=== PATIENT | female | born 1960 | race Hispanic/Latino ===

== ENCOUNTER 2018-01-29 00:34 | Emergency (ER) | payer OTHER ==
[~2018-01-29 00:34] MED LIST: FLUT16H NASAL; SULF1TAB42 PO; TAMS-1 PO; [UNRECOGNIZED DRUG - CODE] PO
[2018-01-29 01:01] LABS: APPEARANCE,URINE Cloudy (CLEAR); BILIRUBIN,URINE Negative (NEGATIVE); COLOR,URINE Yellow (YELLOW); GLUCOSE, URINE (UA) Negative (NEGATIVE); KETONES,URINE Negative (NEGATIVE); LEUKOCYTE ESTERASE ,URINE Moderate (NEGATIVE); NITRATE,URINE Negative (NEGATIVE); OCCULT BLOOD,URINE Negative (NEGATIVE); PROTEIN,URINE Negative (NEGATIVE); UROBILINOGEN,URINE 0.2 mg/dL (0.2-1.0)
[2018-01-29 01:16] LABS: BACTERIA,URINE None Seen /HPF (None Seen); RBC,URINE 0-1 /HPF (0-1)
[2018-01-29 01:17] LABS: SQUAMOUS EPITHELIAL CELL,UR Few /HPF (0-2); URIC ACID CRYSTALS,URINE Moderate /LPF (None Seen)
[2018-01-29 01:21] LABS: BASOPHILS % (AUTO) 2.4 % (0.0-5.0); EOSINOPHILS % (AUTO) 13.3 % (0.0-8.0); HEMATOCRIT 39.5 % (36-48); LYMPHOCYTES % (AUTO) 19.5 % (21.0-51.0); MEAN CORPUSCULAR HEMOGLOBIN 28.3 pg (27.0-33.0); MEAN CORPUSCULAR HGB CONC 32.5 g/dL (32.0-36.0); MEAN CORPUSCULAR VOLUME 87.1 fL (79-99); MONOCYTES % (AUTO) 7.3 % (3.0-13.0); NEUTROPHILS % (AUTO) 57.5 % (40.0-77.0); PLATELET COUNT (AUTO) 227 K/uL (130-400); RED BLOOD CELL COUNT(AUTO) 4.53 MIL/uL (4.00-5.50); WHITE BLOOD COUNT (AUTO) 14.1 K/uL (4.8-10.8)
[2018-01-29] MEDS ORDERED: SODIUM CHLORIDE 0.9% 500ML 500 ML IV ONE (01:39)
[2018-01-29] MEDS ORDERED: MORPHINE SULFATE 4 MG/1ML SYG ONE (01:39)
[2018-01-29] MEDS ORDERED: ONDANSETRON HCL 4 MG/2 ML VIAL ONE (01:39)
[2018-01-29 01:41] LABS: CREATININE 0.8 mg/dL (0.5-1.5); POTASSIUM 4.3 mmol/L (3.5-5.1)
[2018-01-29 01:53] LABS: ALBUMIN 3.3 g/dL (3.5-5.0); BILIRUBIN,TOTAL 0.4 mg/dL (0.2-1.0); TOTAL PROTEIN, SERUM 7.6 g/dL (6.0-8.3)
[2018-01-29 01:55] LABS: B-TYPE NATRIURETIC PEPTIDE < 5 pg/mL (0-100)
[2018-01-29] MEDS ORDERED: KETOROLAC TROMETHAMINE 30MG/ML ONE (03:22)
== END 2018-01-29 04:06 | disposition home or self-care (01) ==
LOC: EDH 00:34
DX: N23 Unspecified renal colic (principal); E78.5 Hyperlipidemia, unspecified; Z88.1 Allergy status to other antibiotic agents
CPT/HCPCS: 36415; 71045; 74176; 80053; 81001; 82550; 83880; 84484; 84702; 85025; 93005; 94761; 96374; 96375; 99285; J1885; J2270; J2405; J7040

== ENCOUNTER 2018-02-16 01:51 | Inpatient (IN) | payer OTHER ==
[~2018-02-16] VITALS: Ht 160 cm; Wt 102.1 kg
[2018-02-16 02:27] LABS: BILIRUBIN,URINE Negative (NEGATIVE); COLOR,URINE Yellow (YELLOW); GLUCOSE, URINE (UA) Negative (NEGATIVE); KETONES,URINE Negative (NEGATIVE); LEUKOCYTE ESTERASE ,URINE Small (NEGATIVE); NITRATE,URINE Negative (NEGATIVE); OCCULT BLOOD,URINE Negative (NEGATIVE); PROTEIN,URINE Negative (NEGATIVE); UROBILINOGEN,URINE 0.2 mg/dL (0.2-1.0)
[2018-02-16 02:31] LABS: APPEARANCE,URINE SLIGHTLY CLOUDY (CLEAR)
[2018-02-16 02:36] LABS: BACTERIA,URINE None Seen /HPF (None Seen); RBC,URINE None Seen /HPF (0-1); SQUAMOUS EPITHELIAL CELL,UR Rare /HPF (0-2); URIC ACID CRYSTALS,URINE Few /LPF (None Seen)
[2018-02-16 03:10] LABS: CREATININE 0.8 mg/dL (0.5-1.5); POTASSIUM 3.7 mmol/L (3.5-5.1)
[2018-02-16 03:14] LABS: ALBUMIN 3.1 g/dL (3.5-5.0); BILIRUBIN,TOTAL 0.4 mg/dL (0.2-1.0); CRP QUANTITATIVE 47.5 mg/L (0.00-9.0); TOTAL PROTEIN, SERUM 7.3 g/dL (6.0-8.3)
[2018-02-16 03:17] LABS: EOSINOPHILS % (AUTO) 19.2 % (0.0-8.0); HEMATOCRIT 36.7 % (36-48); LYMPHOCYTES % (AUTO) 22.1 % (21.0-51.0); MEAN CORPUSCULAR HEMOGLOBIN 29.1 pg (27.0-33.0); MEAN CORPUSCULAR HGB CONC 33.7 g/dL (32.0-36.0); MEAN CORPUSCULAR VOLUME 86.3 fL (79-99); MONOCYTES % (AUTO) 8.1 % (3.0-13.0); NEUTROPHILS % (AUTO) 49.6 % (40.0-77.0); PLATELET COUNT (AUTO) 305 K/uL (130-400); RED BLOOD CELL COUNT(AUTO) 4.25 MIL/uL (4.00-5.50); RED CELL DISTRIBUTION WIDTH 15.4 % (11.0-15.5); WHITE BLOOD COUNT (AUTO) 17.5 K/uL (4.8-10.8)
[2018-02-16] MEDS ORDERED: HYOSCYAMINE SULFATE 0.125 MG TAB.SUBL SL ONE (04:09)
[2018-02-16] MEDS ORDERED: METHYLPREDNISOLONE SOD SUCC 125MG/2ML VIAL ONE (04:09)
[2018-02-16 04:14] LABS: ERYTHROCYTE SEDIMENTATION RATE 38 MM/HR (0-30)
[2018-02-16 04:50] VITALS: BP 111/67
[2018-02-16] MEDS: SODIUM CHLORIDE 0.9% 1000ML 1,000 ML IV SCH ×3 (05:36→22:07)
[2018-02-16] MEDS ORDERED: ONDANSETRON HCL 4 MG/2 ML VIAL IV PRN (05:45)
[2018-02-16] MEDS ORDERED: METHYLPREDNISOLONE SOD SUCC 125MG/2ML VIAL IV SCH (05:45)
[2018-02-16 08:00] VITALS: BP 118/67
[2018-02-16] MEDS ORDERED: PANTOPRAZOLE 40 MG/VIAL IVP SCH (09:00)
[2018-02-16] MEDS ORDERED: ENOXAPARIN SODIUM 40 MG/0.4 ML SYRINGE SQ SCH (09:00)
[2018-02-16] MEDS: LEVOFLOXACIN 500 MG/D5W 100 ML 100 ML IV SCH (09:42)
[2018-02-16 11:00] VITALS: BP 117/58
[2018-02-16] MEDS ORDERED: METHYLPREDNISOLONE SOD SUCC 40MG/ML 1ML IVP SCH (13:15)
[2018-02-16] MEDS: METRONIDAZOLE 500MG/100ML BAG 100 ML IV SCH ×2 (13:27→14:40)
[2018-02-16 16:00] VITALS: BP 99/54
[2018-02-16 19:15] VITALS: BP 100/57
[2018-02-16] MEDS ORDERED: LOPERAMIDE HCL 2 MG CAP PO PRN (21:45)
[2018-02-16] MEDS: METRONIDAZOLE 500 MG TABLET PO SCH (22:07)
[2018-02-17] VITALS (7 sets, daily range): BP systolic 90–135; BP diastolic 50–72
[2018-02-17 05:04] LABS: BASOPHILS % (AUTO) 0.6 % (0.0-5.0); EOSINOPHILS % (AUTO) 0.3 % (0.0-8.0); HEMATOCRIT 33.3 % (36-48); LYMPHOCYTES % (AUTO) 15.4 % (21.0-51.0); MEAN CORPUSCULAR HEMOGLOBIN 29.3 pg (27.0-33.0); MEAN CORPUSCULAR HGB CONC 34.1 g/dL (32.0-36.0); MONOCYTES % (AUTO) 11.3 % (3.0-13.0); NEUTROPHILS % (AUTO) 72.4 % (40.0-77.0); PLATELET COUNT (AUTO) 292 K/uL (130-400); RED BLOOD CELL COUNT(AUTO) 3.87 MIL/uL (4.00-5.50); RED CELL DISTRIBUTION WIDTH 15.6 % (11.0-15.5); WHITE BLOOD COUNT (AUTO) 14.9 K/uL (4.8-10.8)
[2018-02-17 05:30] LABS: ALBUMIN 2.8 g/dL (3.5-5.0); BILIRUBIN,TOTAL 0.3 mg/dL (0.2-1.0); CREATININE 0.7 mg/dL (0.5-1.5); POTASSIUM 3.7 mmol/L (3.5-5.1); TOTAL PROTEIN, SERUM 6.6 g/dL (6.0-8.3)
[2018-02-17] MEDS: METRONIDAZOLE 500 MG TABLET PO SCH ×3 (07:27→21:45)
[2018-02-17] MEDS: LEVOFLOXACIN 500 MG/D5W 100 ML 100 ML IV SCH (09:55)
[2018-02-17] MEDS: PANTOPRAZOLE SODIUM 40 MG TABLET.DR PO SCH (09:56)
[2018-02-17] MEDS: SODIUM CHLORIDE 0.9% 1000ML 1,000 ML IV SCH (10:06)
[2018-02-17] MEDS: METHYLPREDNISOLONE SOD SUCC 40MG/ML 1ML IVP SCH (20:21)
[2018-02-18 03:00] VITALS: BP 110/61
[2018-02-18] MEDS ORDERED: DICYCLOMINE HCL 20 MG TAB PO PRN (04:45)
[2018-02-18 05:25] LABS: MEAN CORPUSCULAR HEMOGLOBIN 28.9 pg (27.0-33.0); MEAN CORPUSCULAR HGB CONC 33.4 g/dL (32.0-36.0); MEAN CORPUSCULAR VOLUME 86.4 fL (79-99); PLATELET COUNT (AUTO) 302 K/uL (130-400); RED CELL DISTRIBUTION WIDTH 15.6 % (11.0-15.5); WHITE BLOOD COUNT (AUTO) 10.9 K/uL (4.8-10.8)
[2018-02-18 05:30] LABS: CREATININE 0.8 mg/dL (0.5-1.5); POTASSIUM 3.7 mmol/L (3.5-5.1)
[2018-02-18] MEDS: METRONIDAZOLE 500 MG TABLET PO SCH (06:51)
[2018-02-18] MEDS: PANTOPRAZOLE SODIUM 40 MG TABLET.DR PO SCH (06:51)
[2018-02-18 07:59] VITALS: BP 114/64
[2018-02-18] MEDS: LEVOFLOXACIN 500 MG/D5W 100 ML 100 ML IV SCH (08:45)
[2018-02-18] MEDS: METHYLPREDNISOLONE SOD SUCC 40MG/ML 1ML IVP SCH (08:45)
[2018-02-18] MEDS ORDERED: METR500T4 PO (08:46)
[2018-02-18] MEDS ORDERED: LEVO500T2 PO (08:46)
[2018-02-18] MEDS ORDERED: PRED20TA3 PO (08:47)
[2018-02-18 12:00] VITALS: BP 109/65
[2018-02-18 16:00] VITALS: BP 127/72
== END 2018-02-18 17:05 | disposition home or self-care (01) | DRG 386 ==
LOC: EDH 01:51 → EDHIP 04:15 → 3BH 05:50
PROVIDERS: ADMIT Internal Medicine; ATTEND Internal Medicine
PROC: 3E0234Z Introduction of Serum, Toxoid and Vaccine into Muscle, Percutaneous Approach (ICD-10-PCS; principal; 2018-02-17)
DX: K51.90 Ulcerative colitis, unspecified, without complications (principal); E44.0 Moderate protein-calorie malnutrition; R15.2 Fecal urgency; E66.9 Obesity, unspecified; D72.1 Eosinophilia; E78.5 Hyperlipidemia, unspecified; Z68.39 Body mass index [BMI] 39.0-39.9, adult; Z86.73 Personal history of transient ischemic attack (TIA), and cerebral infarction without residual deficits; Z90.79 Acquired absence of other genital organ(s); Z88.8 Allergy status to other drugs, medicaments and biological substances; Z23 Encounter for immunization; Z82.3 Family history of stroke; Z83.3 Family history of diabetes mellitus; Z82.5 Family history of asthma and other chronic lower respiratory diseases; Z82.0 Family history of epilepsy and other diseases of the nervous system; Z82.49 Family history of ischemic heart disease and other diseases of the circulatory system
CPT/HCPCS: 36415; 74176; 80048; 80053; 81001; 82150; 82270; 83690; 85025; 85027; 85651; 86140; 87046; 87205; 87324; C9113; G0008; J1650; J1956; J2405; J2920; J2930; J3490; J7030; Q2038

== ENCOUNTER → 2018-04-03 | Outpatient (CLI) | payer SELFPAY ==
[~2018-04-03] MED LIST changes: +LEVO500T2 PO; +METR500T4 PO; +PRED20TA3 PO; -SULF1TAB42 PO; -[UNRECOGNIZED DRUG - CODE] PO
== END | disposition home or self-care (01) ==
LOC: OIH 14:38
PROVIDERS: ATTEND Internal Medicine Cardiovascular Disease
DX: Z13.6 Encounter for screening for cardiovascular disorders (principal)
CPT/HCPCS: 75571

== ENCOUNTER → 2018-04-29 | Outpatient (CLI) | payer OTHER ==
[~2018-04-29] MED LIST changes: +METR-224 PO; -METR500T4 PO
== END | disposition home or self-care (01) ==
LOC: SHCH 16:03
PROVIDERS: ATTEND Internal Medicine Cardiovascular Disease
DX: I51.7 Cardiomegaly (principal)
CPT/HCPCS: 93306

== ENCOUNTER 2018-08-04 13:26 | Emergency (ER) | payer OTHER ==
[~2018-08-04 13:26] MED LIST changes: +METR-172 PO; -METR-224 PO
== END 2018-08-04 13:39 | disposition left against medical advice (07) ==
LOC: EDH 13:26
DX: M54.5 Low back pain (principal); E78.5 Hyperlipidemia, unspecified; Z53.21 Procedure and treatment not carried out due to patient leaving prior to being seen by health care provider; Z88.1 Allergy status to other antibiotic agents
CPT/HCPCS: 99281

== ENCOUNTER → 2018-09-29 | Outpatient (CLI) | payer OTHER ==
[2018-09-29 12:35] LABS: CREATININE 0.8 mg/dL (0.5-1.5)
== END | disposition home or self-care (01) ==
LOC: LAB 11:59
PROVIDERS: ATTEND Psychiatry & Neurology Neurology
DX: I67.1 Cerebral aneurysm, nonruptured (principal); R51 Headache
CPT/HCPCS: 36415; 82565; 84520

== ENCOUNTER → 2018-10-01 | Outpatient (CLI) | payer OTHER ==
[~2018-10-01] MED LIST changes: +IOHEXOL-350 75 ML VIAL IV ONE
== END | disposition home or self-care (01) ==
LOC: RAH 12:53
PROVIDERS: ATTEND Psychiatry & Neurology Neurology
DX: I67.2 Cerebral atherosclerosis (principal)
CPT/HCPCS: 70496; Q9967

== ENCOUNTER 2018-10-06 21:51 | Emergency (ER) | payer OTHER ==
[~2018-10-06 21:51] MED LIST changes: -IOHEXOL-350 75 ML VIAL IV ONE
[2018-10-06 22:22] LABS: BILIRUBIN,URINE NEGATIVE (NEGATIVE); GLUCOSE, URINE (UA) NEGATIVE (NEGATIVE); KETONES,URINE NEGATIVE (NEGATIVE); LEUKOCYTE ESTERASE ,URINE TRACE (NEGATIVE); NITRATE,URINE NEGATIVE (NEGATIVE); OCCULT BLOOD,URINE LARGE (NEGATIVE); PH,URINE 5.5 (5.0-8.0); PROTEIN,URINE TRACE mg/dL (NEGATIVE); UROBILINOGEN,URINE 0.2 mg/dL (0.2-1.0)
[2018-10-06 22:29] LABS: APPEARANCE,URINE CLOUDY (CLEAR); COLOR,URINE PINK (YELLOW)
[2018-10-06] MEDS ORDERED: ONDANSETRON HCL 4 MG/2 ML VIAL ONE (22:37)
[2018-10-06] MEDS ORDERED: KETOROLAC TROMETHAMINE 30MG/ML ONE (22:37)
[2018-10-06 22:38] LABS: BACTERIA,URINE Few /HPF (None Seen); MUCUS,URINE None Seen LPF (None Seen); SQUAMOUS EPITHELIAL CELL,UR None Seen /HPF (0-2); WBC,URINE 51-100 /HPF (0-1); YEAST,URINE BUDDING Few /HPF (None Seen)
[2018-10-06] MEDS ORDERED: SODIUM CHLORIDE 0.9% 1000ML 1,000 ML IV ONE (22:38)
[2018-10-06 23:39] LABS: BASOPHILS % (AUTO) 1.2 % (0.0-5.0); EOSINOPHILS % (AUTO) 4.6 % (0.0-8.0); HEMATOCRIT 35.7 % (36-48); LYMPHOCYTES % (AUTO) 16.4 % (21.0-51.0); MEAN CORPUSCULAR HEMOGLOBIN 26.8 pg (27.0-33.0); MEAN CORPUSCULAR HGB CONC 32.5 g/dL (32.0-36.0); MEAN CORPUSCULAR VOLUME 82.5 fL (79-99); MONOCYTES % (AUTO) 6.4 % (3.0-13.0); NEUTROPHILS % (AUTO) 71.4 % (40.0-77.0); PLATELET COUNT (AUTO) 275 K/uL (130-400); RED BLOOD CELL COUNT(AUTO) 4.33 MIL/uL (4.00-5.50); RED CELL DISTRIBUTION WIDTH 14.8 % (11.0-15.5)
[2018-10-06 23:48] LABS: CARBON DIOXIDE 28 mmol/L (21-32); CHLORIDE 106 mmol/L (101-111); GLOMERULAR FILTR. RATE CALC 61 mL/min (>60); GLUCOSE,RANDOM 181 mg/dL (70-105); SODIUM SERUM 141 mmol/L (136-145); UREA NITROGEN, BLOOD 12 mg/dL (7-18)
[2018-10-06 23:53] LABS: ALANINE AMINOTRANSFERASE 18 U/L (12-78); ALBUMIN 3.2 g/dL (3.5-5.0); ASPARTATE AMINOTRANSFERASE 15 U/L (10-37); BILIRUBIN,DIRECT < 0.1 mg/dL (0.0-0.3); BILIRUBIN,TOTAL 0.2 mg/dL (0.2-1.0); CREATINE KINASE, TOTAL 58 U/L (21-232); LIPASE 203 U/L (114-286); TOTAL PROTEIN, SERUM 7.1 g/dL (6.0-8.3)
[2018-10-07] MEDS ORDERED: LEVOFLOXACIN 500 MG/D5W 100 ML 100 ML ONE (00:22)
[2018-10-07] MEDS ORDERED: DiphenhydrAMINE HCL 50 MG/ML VIAL ONE (00:30)
== END 2018-10-07 01:55 | disposition home or self-care (01) ==
LOC: EDH 21:51
DX: N23 Unspecified renal colic (principal); N12 Tubulo-interstitial nephritis, not specified as acute or chronic; E78.5 Hyperlipidemia, unspecified; Z90.49 Acquired absence of other specified parts of digestive tract; Z88.1 Allergy status to other antibiotic agents
CPT/HCPCS: 36415; 74176; 80048; 80076; 81001; 82550; 83690; 84484; 85025; 93005; 96361; 96365; 96375; 99285; J1200; J1885; J1956; J2405; J7030

== ENCOUNTER → 2019-02-24 | Outpatient (CLI) | payer OTHER | END | disposition home or self-care (01) | LOC: RAH 10:28 | PROVIDERS: ATTEND Internal Medicine Gastroenterology | DX: K31.84 Gastroparesis (principal); R11.0 Nausea | CPT/HCPCS: 78264; A9541 ==

== ENCOUNTER → 2019-03-01 | Outpatient (CLI) | payer OTHER ==
[2019-03-01 12:29] LABS: BASOPHILS % (AUTO) 1.3 % (0.0-5.0); EOSINOPHILS % (AUTO) 4.5 % (0.0-8.0); HEMATOCRIT 40.1 % (36-48); LYMPHOCYTES % (AUTO) 28.6 % (21.0-51.0); MEAN CORPUSCULAR HEMOGLOBIN 27.8 pg (27.0-33.0); MEAN CORPUSCULAR HGB CONC 33.1 g/dL (32.0-36.0); MEAN CORPUSCULAR VOLUME 83.7 fL (79-99); MONOCYTES % (AUTO) 6.5 % (3.0-13.0); NEUTROPHILS % (AUTO) 59.1 % (40.0-77.0); PLATELET COUNT (AUTO) 293 K/uL (130-400); RED BLOOD CELL COUNT(AUTO) 4.79 MIL/uL (4.00-5.50); RED CELL DISTRIBUTION WIDTH 14.6 % (11.0-15.5); WHITE BLOOD COUNT (AUTO) 9.3 K/uL (4.8-10.8)
[2019-03-01 12:42] LABS: CREATININE 0.7 mg/dL (0.5-1.5); POTASSIUM 3.7 mmol/L (3.5-5.1)
== END | disposition home or self-care (01) ==
LOC: LAB 11:19
PROVIDERS: ATTEND Urology
DX: N13.39 Other hydronephrosis (principal)
CPT/HCPCS: 36415; 80048; 85025

== ENCOUNTER → 2019-03-04 | Outpatient (CLI) | payer OTHER ==
[~2019-03-04] MED LIST changes: +IOHEXOL-350 75 ML VIAL IV ONE
== END | disposition home or self-care (01) ==
LOC: RAH 09:20
PROVIDERS: ATTEND Urology
DX: N13.39 Other hydronephrosis (principal)
CPT/HCPCS: 74400; Q9967

== ENCOUNTER → 2019-03-31 | Outpatient (CLI) | payer OTHER ==
[~2019-03-31] MED LIST changes: +IOHEXOL 350 MG/ML 100ML INFUS..BTL IV ONE; -IOHEXOL-350 75 ML VIAL IV ONE
== END | disposition home or self-care (01) ==
LOC: OIH 08:16
PROVIDERS: ATTEND Obstetrics & Gynecology
DX: N95.0 Postmenopausal bleeding (principal)
CPT/HCPCS: 72193; Q9967

== ENCOUNTER 2019-04-29 20:59 | Emergency (ER) | payer OTHER ==
[~2019-04-29 20:59] MED LIST changes: -IOHEXOL 350 MG/ML 100ML INFUS..BTL IV ONE
== END 2019-04-29 22:06 | disposition home or self-care (01) ==
LOC: EDH 20:59
DX: N99.820 Postprocedural hemorrhage of a genitourinary system organ or structure following a genitourinary system procedure (principal); E78.5 Hyperlipidemia, unspecified; Z90.49 Acquired absence of other specified parts of digestive tract; Z88.1 Allergy status to other antibiotic agents; Z90.710 Acquired absence of both cervix and uterus; Y83.8 Other surgical procedures as the cause of abnormal reaction of the patient, or of later complication, without mention of misadventure at the time of the procedure; Y82.8 Other medical devices associated with adverse incidents
CPT/HCPCS: 99281

== ENCOUNTER → 2021-11-12 | Outpatient (CLI) | payer OTHER | END | disposition home or self-care (01) | LOC: RAH 10:49 | PROVIDERS: ATTEND Urology | DX: R31.29 Other microscopic hematuria (principal) | CPT/HCPCS: 76770 ==

== ENCOUNTER → 2022-04-22 | Outpatient (CLI) | payer OTHER | END | disposition home or self-care (01) | LOC: RAH 13:05 | PROVIDERS: ATTEND Urology | DX: N20.0 Calculus of kidney (principal); K76.0 Fatty (change of) liver, not elsewhere classified; K43.9 Ventral hernia without obstruction or gangrene | CPT/HCPCS: 74176 ==

== ENCOUNTER 2023-04-14 23:29 | Emergency (ER) | payer OTHER ==
[~2023-04-14] VITALS: Ht 160 cm; Wt 94.3 kg
[2023-04-15 00:25] LABS: RAPID GROUP A STREP negative (NEGATIVE)
[2023-04-15 00:27] LABS: APPEARANCE,URINE CLEAR (CLEAR); BILIRUBIN,URINE NEGATIVE (NEGATIVE); COLOR,URINE LIGHT-YELLOW (YELLOW); GLUCOSE, URINE (UA) NEGATIVE (NEGATIVE); KETONES,URINE NEGATIVE (NEGATIVE); LEUKOCYTE ESTERASE ,URINE 25 Leu/uL (NEGATIVE); NITRATE,URINE NEGATIVE (NEGATIVE); OCCULT BLOOD,URINE NEGATIVE (NEGATIVE); PROTEIN,URINE NEGATIVE (NEGATIVE); SARS-CoV-2, RNA, NAAT NEGATIVE SARS CoV-2 (NEGATIVE); UROBILINOGEN,URINE 0.2 mg/dL (0.2-1.0)
[2023-04-15] MEDS ORDERED: ONDANSETRON 4MG INJ IVP ONE (00:30)
[2023-04-15] MEDS ORDERED: MORPHINE 4 MG SYG IVP ONE (00:30)
[2023-04-15 00:33] LABS: INFLUENZA TYPE A Negative For Type A (NEGATIVE); INFLUENZA TYPE B Negative For Type B (NEGATIVE)
[2023-04-15 00:36] LABS: ADD UA MICROSCOPIC YES
[2023-04-15 00:39] LABS: MUCUS,URINE RARE LPF (None Seen); SQUAMOUS EPITHELIAL CELL,UR FEW /HPF (0-2)
[2023-04-15 00:43] LABS: CREATININE 0.7 mg/dL (0.5-1.5); POTASSIUM 3.3 mmol/L (3.5-5.1)
[2023-04-15 00:44] LABS: INR < 0.93 (0.85-1.15)
[2023-04-15 00:48] LABS: ALBUMIN 3.4 g/dL (3.5-5.0); BILIRUBIN,TOTAL 0.3 mg/dL (0.2-1.0); TOTAL PROTEIN, SERUM 7.4 g/dL (6.0-8.3)
[2023-04-15 01:08] LABS: B-TYPE NATRIURETIC PEPTIDE 9 pg/mL (0-100)
[2023-04-15 01:10] LABS: BASOPHILS % (AUTO) 0.9 % (0.0-5.0); EOSINOPHILS % (AUTO) 4.6 % (0.0-8.0); HEMATOCRIT 40.6 % (36-48); IMMATURE GRANULOCYTE ABSOLUTE 0.02 K/uL (0-1); LYMPHOCYTES # (AUTO) 3.2 K/uL (1.0-4.8); MEAN CORPUSCULAR HEMOGLOBIN 28.3 pg (27.0-33.0); MEAN CORPUSCULAR VOLUME 85.8 fL (79-99); MONOCYTES # (AUTO) 0.7 K/uL (0.1-1.0); MONOCYTES % (AUTO) 6.6 % (3.0-13.0); NEUTROPHILS # (AUTO) 6.4 K/uL (1.8-7.7); NEUTROPHILS % (AUTO) 58.7 % (40.0-77.0); PLATELET COUNT (AUTO) 277 K/uL (130-400); RED BLOOD CELL COUNT(AUTO) 4.73 MIL/uL (4.00-5.50); RED CELL DISTRIBUTION WIDTH 14.6 % (11.0-15.5); WHITE BLOOD COUNT (AUTO) 10.9 K/uL (4.8-10.8)
[2023-04-15 03:21] VITALS: BP 109/73; PULSE 86; RESP 14; O2SAT 100
[2023-04-15] MEDS ORDERED: IBUP-1493 PO (03:37)
== END 2023-04-15 04:11 | disposition home or self-care (01) ==
LOC: EDH 23:29
DX: R07.89 Other chest pain (principal); R05.9 Cough, unspecified; R06.02 Shortness of breath; E11.9 Type 2 diabetes mellitus without complications; Z20.822 Contact with and (suspected) exposure to COVID-19; Z79.899 Other long term (current) drug therapy; Z90.710 Acquired absence of both cervix and uterus; Z98.890 Other specified postprocedural states; Z88.8 Allergy status to other drugs, medicaments and biological substances
CPT/HCPCS: 99285; 71045; 87635; 82550; 84484 ×2; 80053; 83880; 85025; 85610; 85730; 87088; 87880; 87804 ×2; 81001; 36415; 93005; 96374; 96375; C9803; J2405; J2270

== ENCOUNTER → 2024-04-12 | Outpatient (CLI) | payer OTHER ==
[~2024-04-12] MED LIST changes: +IBUP-1493 PO
== END | disposition home or self-care (01) ==
LOC: SHCH 11:17
PROVIDERS: ATTEND Internal Medicine Cardiovascular Disease
DX: I73.9 Peripheral vascular disease, unspecified (principal); I20.0 Unstable angina
CPT/HCPCS: 93306

== ENCOUNTER → 2024-05-04 | Outpatient (CLI) | payer OTHER ==
--- NOTE | 2024-05-04 10:39 | HMCIMG ---
CT ABD/PEL WO CON RENAL/APPY HISTORY: Renal stones COMPARISON: 04/22/2022 TECHNIQUE: Multiple sequential axial images of the abdomen and pelvis were obtained from the dome of the diaphragm through symphysis pubis. Patient was not given contrast through intravenous route. Oral contrast was not given. FINDINGS: No pleural effusion is seen bilaterally. There is no evidence of parenchymal disease or pulmonary nodule of the visualized lower lungs. Degenerative changes of the thoracolumbar spine are present. The heart is not enlarged. Liver is enlarged with fatty changes measuring 18.4 cm. Postcholecystectomy changes are seen. The liver, spleen, adrenal glands and pancreas are unremarkable. There is no evidence of hydronephrosis bilaterally. Tiny 2 mm left renal pelvic stone. There is small 5 mm right hypodense renal cysts Fecal material is seen in the colon. There are normal size retroperitoneal and mesenteric lymph nodes. No ascites is seen. Atherosclerotic changes are present. Pelvic sidewalls are symmetric bilaterally. Bladder is poorly distended. IMPRESSION: 1. Enlarged fatty liver. Tiny 2 mm left renal pelvic stone. No ascites. CT was performed with one or more following dose reduction techniques: automated exposure control, adjustment of the mA and kv according to patient's size, or use of a iterative reconstruction technique.
== END | disposition home or self-care (01) ==
LOC: RAH 09:27
PROVIDERS: ATTEND Urology
DX: N20.0 Calculus of kidney (principal); K76.0 Fatty (change of) liver, not elsewhere classified; N28.1 Cyst of kidney, acquired; N32.89 Other specified disorders of bladder; I70.90 Unspecified atherosclerosis; Z90.49 Acquired absence of other specified parts of digestive tract
CPT/HCPCS: 74176

== ENCOUNTER → 2024-05-18 | Outpatient (CLI) | payer OTHER ==
[2024-05-18] MEDS: REGADENOSON 0.4 MG/5 ML PF SYG IVP ONE (11:35)
== END | disposition home or self-care (01) ==
LOC: SHCH 08:28
PROVIDERS: ATTEND Internal Medicine Cardiovascular Disease
DX: I20.0 Unstable angina (principal)
CPT/HCPCS: 78452; 93017; J2785; A9500 ×2

== ENCOUNTER 2024-10-09 00:12 | Emergency (ER) | payer OTHER ==
[~2024-10-09] VITALS: Ht 160 cm; Wt 95.4 kg
[2024-10-09 00:15] VITALS: TEMP 98.8
[2024-10-09 01:08] LABS: BASOPHILS # (AUTO) 0.08 K/uL (0.00-0.20); BASOPHILS % (AUTO) 0.7 % (0.0-5.0); EOSINOPHILS # (AUTO) 0.49 K/uL (0.00-0.70); EOSINOPHILS % (AUTO) 4.2 % (0.0-8.0); HEMATOCRIT 44.4 % (36-48); IMMATURE GRANULOCYTE ABSOLUTE 0.04 K/uL (0-1); LYMPHOCYTES # (AUTO) 2.6 K/uL (1.0-4.8); LYMPHOCYTES % (AUTO) 22.4 % (21.0-51.0); MEAN CORPUSCULAR HEMOGLOBIN 28.3 pg (27.0-33.0); MEAN CORPUSCULAR HGB CONC 32.4 g/dL (32.0-36.0); MEAN CORPUSCULAR VOLUME 87.2 fL (79-99); MONOCYTES # (AUTO) 0.9 K/uL (0.1-1.0); MONOCYTES % (AUTO) 7.6 % (3.0-13.0); NEUTROPHILS # (AUTO) 7.6 K/uL (1.8-7.7); NEUTROPHILS % (AUTO) 64.8 % (40.0-77.0); PLATELET COUNT (AUTO) 271 K/uL (130-400); RED BLOOD CELL COUNT(AUTO) 5.09 MIL/uL (4.00-5.50); RED CELL DISTRIBUTION WIDTH 14.6 % (11.0-15.5); WHITE BLOOD COUNT (AUTO) 11.8 K/uL (4.8-10.8)
[2024-10-09 01:18] LABS: CREATININE 0.7 mg/dL (0.5-1.0); POTASSIUM 3.3 mmol/L (3.5-5.1)
--- NOTE | 2024-10-09 01:24 | ERN ---
General Chief Complaint: Abdominal Pain Stated Complaint: ABDOMINAL PAIN Time Seen by MD: 00:31 History of Present Illness Initial Comments Patient is a 64-year-old obese female coming in with left lower quadrant abdominal pain. She states she has a history of ulcerative colitis, but she is not taking any medications for it currently. She relates the abdominal pain to a gastroenteritis that she caught from her with associated nausea vomiting and diarrhea. She states that she is recovering from the carolyn roenteritis but her left lower quadrant pain is still present. She does have some left lower back pain which she says is getting better and is most likely related to her episodes of emesis. Patient says afebrile no fever no chills no upper respiratory tract infections. Allergies: Coded Allergies: cephalexin (Verified Allergy, Unknown, 01/15/15) Home Meds Active Scripts Ibuprofen (Motrin/Advil) 800 Mg Tab, 800 MG PO TID, #30 TAB Prov:LSIME STONE MD 04/15/23 Prednisone (Prednisone) 20 Mg Tablet, 20 MG PO DAILYBKFST for 5 Days, TAB 0 Refills Prov:BRETT CHASE MD 02/18/18 Metronidazole (Metronidazole) 500 Mg Tablet, 500 MG PO BIDMEALS for 5 Days, TAB 0 Refills Prov:BRETT CHASE MD 02/18/18 Levofloxacin (Levaquin) 500 Mg Tablet, 500 MG PO DAILY for 5 Days, TAB 0 Refills Prov:BRETT CHASE MD 02/18/18 Tamsulosin HCl (Flomax) 0.4 Mg/Cap Cap.er.24h, 0.4 MG PO DAILY, #30 CAPSULE.DR Prov:AMA KHOURY MD 01/16/15 Reported Medications Fluticasone Propionate (Flonase Nasal [place]) 50 Mcg/[place], 50 MCG NASAL DAILY, SPRAY 01/15/15 Past Medical History Past Medical History: Diabetes-Type II, High Cholesterol Medical History Other: HX OF COLITIS Past Surgical History: None Surgical History Other: HX OF BRAIN ANEURSYM Family History Family History: DM, HTN Social History Social History: Negative, Lives with family Constitutional: (-) chills, (-) diaphoresis, (-) fever, (-) malaise, (-) weakness, (-) other documentation EENTM: (-) eye pain, (-) blurred vision, (-) tearing, (-) double vision, (-) ear pain, (-) ear discharge, (-) nose pain, (-) nose congestion, (-) throat pain, (-) Throat swelling, (-) mouth pain, (-) tooth pain, (-) mouth swelling, (-) other documentation Respiratory: (-) cough, (-) orthopnea, (-) short of breath, (-) stridor, (-) wheezing, (-) other documentation Cardiovascular: (-) chest pain, (-) edema, (-) palpitations, (-) syncope, (-) dyspnea on exertion, (-) other documentation Gastrointestinal/Abdominal: (+) nausea, (+) vomiting, (+) diarrhea Genitourinary: (-) vaginal discharge, (-) vaginal bleeding, (-) dysuria, (-) frequency, (-) hematuria, (-) pain, (-) other documentation Musculoskeletal: (-) Neck pain, (-) back pain, (-) Flank Pain, (-) joint pain, (-) joint swelling, (-) muscle pain, (-) muscle stiffness, (-) gout, (-) other d ocumentation Neuro: (-) altered mental status, (-) headache, (-) syncope, (-) paralysis, (-) numbness, (-) seizure, (-) pre-existing deficit, (-) tremors, (-) weakness, (-) dizziness, (-) slurred speech, (-) vertigo, (-) other documentation Physical Exam General Appearance: (+) mild distress Orientation: (+) alert, (+) oriented x 3 Head/Face Trauma: No Eye: bilateral eye normal inspection, bilateral eye PERRL, bilateral eye EOMI Ear, Nose, Throat: (+) hearing grossly normal, (+) normal ENT inspection Neck: (+) normal inspection, (+) supple Respiratory: (+) chest non-tender, (+) lungs clear, (+) well ventilated Heart: (+) regular Vascular: (+) no edema, (+) normal peripheral pulse Gastrointestinal: (+) soft, (+) non-tender, (+) bowel sound present, (+) tender Extremities: (+) normal range of motion Results Laboratory and Microbiology Lab and Micro Result Laboratory Tests Test 10/09/24 01:00 10/09/24 02:20 White Blood Count 11.8 K/uL (4.8-10.8) H Red Blood Count 5.09 MIL/uL (4.00-5.50) Hemoglobin 14.4 g/dL (12.0-16.0) Hematocrit 44.4 % (36-48) Mean Corpuscular Volume 87.2 fL (79-99) Mean Corpuscular Hemoglobin 28.3 pg (27.0-33.0) Mean Corpuscular Hemoglobin Concent 32.4 g/dL (32.0-36.0) Red Cell Distribution Width 14.6 % (11.0-15.5) Platelet Count 271 K/uL (130-400) Mean Platelet Volume 11.2 fL (7.5-10.5) H Immature Granulocyte % (Auto) 0.3 % (0-1) Neutrophils (%) (Auto) 64.8 % (40.0-77.0) Lymphocytes (%) (Auto) 22.4 % (21.0-51.0) Monocytes (%) (Auto) 7.6 % (3.0-13.0) Eosinophils (%) (Auto) 4.2 % (0.0-8.0) Basophils (%) (Auto) 0.7 % (0.0-5.0) Neutrophils # (Auto) 7.6 K/uL (1.8-7.7) Lymphocytes # (Auto) 2.6 K/uL (1.0-4.8) Monocytes # (Auto) 0.9 K/uL (0.1-1.0) Eosinophils # (Auto) 0.49 K/uL (0.00-0.70) Basophils # (Auto) 0.08 K/uL (0.00-0.20) Absolute Immature Granulocyte (auto 0.04 K/uL (0-1) Nucleated Red Blood Cells 0.0 % (0.0-0.19) Sodium Level 141 mmol/L (136-145) Potassium Level 3.3 mmol/L (3.5-5.1) L Chloride Level 105 mmol/L (101-111) Carbon Dioxide Level 26 mmol/L (21-32) Blood Urea Nitrogen 12 mg/dL (7-18) Creatinine 0.7 mg/dL (0.5-1.0) Glomerular Filtration Rate Calc 98 mL/min (>90) Random Glucose 129 mg/dL (70-105) H Total Calcium 9.1 mg/dL (8.5-10.1) Urine Color YELLOW (YELLOW) Urine Appearance CLOUDY (CLEAR) H Urine pH 5.5 (5.0-8.0) Urine Specific [place] 1.033 (1.001-1.031) Urine Protein 50 mg/dL (NEGATIVE) H Urine Glucose (UA) NEGATIVE mg/dL (NEGATIVE) Urine Ketones NEGATIVE mg/dL (NEGATIVE) Urine Occult Blood LARGE (NEGATIVE) H Urine Nitrate NEGATIVE (NEGATIVE) Urine Bilirubin NEGATIVE mg/dL (NEGATIVE) Urine Urobilinogen 0.2 mg/dL (0.2-1.0) Urine Leukocyte Esterase 75 Rebeca/uL (NEGATIVE) H Urine RBC TNTC /HPF (0-1) H Urine WBC 11-25 /HPF (0-1) H Urine Squamous Epithelial Cells MOD /HPF (0-2) Urine Uric Acid Crystals RARE /LPF (None Seen) Urine Bacteria None /HPF (None Seen) Urine Hyaline Casts 2-5 /LPF (0-1 /LPF) H MDM The patient's left lower quadrant abdominal pain is extremely mild. I had to push extremely hard almost to the patient's back bone before she winced in pain. The patient's left lower back pain is tender when I touch the paraspinous muscles. There are no peritoneal signs in the patient's abdomen. I will get a a UA chemistry panel CBC. I will give her IV fluids and I will get a KUB. Patient's pain seems much better. The KUB shows possible constipation/obstipation. Just now the pain in the patient's left flank has increased and she is asking for pain medication, she is in tears. The urine analysis is also back now and it shows a UA with a lot of blood in the urine and a mild esterase activity. I will get a noncontrast CT scan to rule out renal calculus. I will give her 30 mg of IV Toradol for pain. I will also talked to the patient about GoLYTELY to help relieve the constipat ion that she has. Patient is examined in the evaluated, as per patient she no longer has a abdominal pain and does not feel nauseated. Patient is able to ambulate without any concerns. All labs and CT findings discussed with patient. Patient has been advised to follow up with primary care physician or return to the emergency room if symptoms reappear or get worse. Patient we will be prescribed antibiotics give to treat colitis and enteritis. Patient understands and agrees with plan of care. ED Course Orders Procedure Category Date Status Time Basic Metabolic Panel LAB 10/09/24 Complete 00:55 Cbc With Differential LAB 10/09/24 Complete 00:55 Urinalysis Profile LAB 10/09/24 Complete 00:55 Cyclobenzaprine Hcl PHA 10/09/24 Complete (Cyclobenzaprine Hcl 01:00 Lactated Ringers PHA 10/09/24 Complete 1000ml (Lactated 00:55 Abd 1vw RAD 10/09/24 Taken 01:25 Culture Urine REBEKAH 10/09/24 In Process 02:32 Ketorolac PHA 10/09/24 Complete Tromethamine 30mg/Ml 03:30 Ct Abdomen/Pelvis CT 10/09/24 Taken W/Wo Contras 04:33 Iohexol (Omnipaque) PHA 10/09/24 Complete 04:56 Magnesium Citrate PHA 10/09/24 Complete (Magnesium Citrate) 06:00 Nitrofurantoin PHA 10/09/24 Complete Monohyd/M-Cryst 06:00 Current Medications Medications (Trade) Dose Ordered Sig/Yaron Route PRN Reason Start Time Stop Time Status Last Admin Dose Admin Cyclobenzaprine HCl (Cyclobenzaprine HCl) 10 mg ONCE ONCE PO 10/09/24 01:00 10/09/24 01:01 DC 10/09/24 01:36 Iohexol (Omnipaque) 75 ml STK-MED ONCE IV 10/09/24 04:56 10/09/24 04:56 DC Ketorolac Tromethamine (toRADol) 30 mg ONCE ONCE IVP 10/09/24 03:30 10/09/24 03:31 DC 10/09/24 03:27 Lactated Ringer's (Lactated Ringers 1000ml) 1,000 ml BOLUS STAT IV 10/09/24 00:55 10/09/24 00:58 DC 10/09/24 01:36 Magnesium Citrate (Magnesium Citrate) 296 ml ONCE ONCE PO 10/09/24 06:00 10/09/24 06:05 DC 10/09/24 06:19 Nitrofurantoin Macrocrystals (Macrobid) 100 mg ONCE ONCE PO 10/09/24 06:00 10/09/24 06:05 DC 10/09/24 06:19 Vital Signs Date Time Temp Pulse Resp B/P (MAP) Pulse Ox O2 Delivery O2 Flow Rate FiO2 10/09/24 06:56 81 16 133/74 99 Room Air* 0 21 10/09/24 05:36 78 16 136/70 99 Room Air* 0 10/09/24 03:34 79 16 144/85 99 Room Air* 0 10/09/24 01:46 75 16 141/81 98 Room Air* 0 10/09/24 00:15 98.8 85 19 151/83 100 Room Air DX & DISP Disposition: Discharge Departure Impression: Primary Impression: Abdominal pain Additional Impression: Enterocolitis Condition: Stable Scripts Famotidine (Pepcid) 20 Mg Tablet 1 TAB PO BID for 5 Days, #10 TAB 0 Refills Prov: ELOINA PADILLA MD 10/09/24 Ketorolac Tromethamine (Ketorolac Tromethamine) 10 Mg Tablet 1 TAB PO BID PRN for pain for 3 Days, #6 TAB 0 Refills Prov: ELOINA PADILLA MD 10/09/24 Ondansetron (Ondansetron Odt) 4 Mg Tab.rapdis 4 MG PO Q12H for 5 Days, #10 TAB Prov: ELOINA PADILLA MD 10/09/24 Metronidazole (Metronidazole) 500 Mg Tablet 1 TAB PO TID for 7 Days, #21 TAB 0 Refills Prov: ELOINA PADILLA MD 10/09/24 Referrals: SABIHA STEPHEN (PCP) RICARDO RUEDA MD October 09, 2024 01:24 ELOINA PADILLA MD October 09, 2024 07:53
[2024-10-09] MEDS: LACTATED RINGERS 1000ML IV STA (01:36)
[2024-10-09] MEDS: CYCLOBENZAPRINE HCL 10 MG TABLET PO ONE (01:36)
[2024-10-09 02:31] LABS: ADD UA MICROSCOPIC YES; APPEARANCE,URINE CLOUDY (CLEAR); BILIRUBIN,URINE NEGATIVE (NEGATIVE); COLOR,URINE YELLOW (YELLOW); GLUCOSE, URINE (UA) NEGATIVE (NEGATIVE); KETONES,URINE NEGATIVE (NEGATIVE); LEUKOCYTE ESTERASE ,URINE 75 Leu/uL (NEGATIVE); NITRATE,URINE NEGATIVE (NEGATIVE); OCCULT BLOOD,URINE LARGE (NEGATIVE); PH,URINE 5.5 (5.0-8.0); PROTEIN,URINE 50 mg/dL (NEGATIVE); UROBILINOGEN,URINE 0.2 mg/dL (0.2-1.0)
[2024-10-09 02:33] LABS: MUCUS,URINE MANY LPF (None Seen); RBC,URINE TNTC /HPF (0-1); SQUAMOUS EPITHELIAL CELL,UR MOD /HPF (0-2); URIC ACID CRYSTALS,URINE RARE /LPF (None Seen)
[2024-10-09] MEDS: ketOROlac 30MG VIAL (30MG/ML) IVP ONE (03:27)
[2024-10-09] MEDS ORDERED: IOHEXOL-350 75 ML VIAL IV ONE (04:56)
[2024-10-09] MEDS: NITROFURANTOIN MONOHYD/M-CRYST 100 MG CAPSULE PO ONE (06:19)
[2024-10-09] MEDS: MAGNESIUM CITRATE 296 ML SOLUTION PO ONE (06:19)
[2024-10-09 06:56] VITALS: BP 133/74; PULSE 81; RESP 16; O2SAT 99
[2024-10-09] MEDS ORDERED: ONDA-243 PO (07:52)
[2024-10-09] MEDS ORDERED: FAMO-136 PO (07:52)
[2024-10-09] MEDS ORDERED: KETO10TA2 PO (07:52)
[2024-10-09] MEDS ORDERED: METR-172 PO (07:52)
[2024-10-09] MEDS: metRONIDazole 500 MG TABLET PO ONE (08:04)
--- NOTE | 2024-10-09 08:36 | HMCIMG ---
Exam Type: CT ABDOMEN/PELVIS W/WO CONTRAS Clinical Information: pain, hematuria Comparison: None Contrast: 100 cc's Isovue 370 IV, no complications or adverse reactions CT Dose Index (CTDI): 31.60 mGy Dose Length Product (DLP): 1740.80 total mGy-cm Findings: No evidence of nephro or ureterolithiasis is found. No hydronephrosis or ureteral dilatation is seen. The lung bases are clear. The stomach is unremarkable. It shows no wall thickening. No gross ulceration is seen. It is not overly distended. There are no surrounding inflammatory changes. No wall lesions are identified to suggest cancer. The spleen is unremarkable. It is not enlarged. The pancreas shows normal anatomy. It is not fatty replaced. It shows no lesions. The pancreatic duct is not dilated. The gallbladder is surgically absent. The adrenal glands are unremarkable. There is no enlargement. No lesions are noted. The liver is unremarkable. It shows no focal masses. The appendix is unremarkable. It shows no evidence of inflammation. No appendicolith is seen. The small bowel is unremarkable. There is no evidence of dilatation to suggest obstruction. No evidence of adynamic ileus is seen. There is no small bowel wall thickening to suggest enteritis. The colon is unremarkable. The urinary bladder is unremarkable. There is no wall thickening to suggest tumor or inflammation. There are no intraluminal calculi. There are no diverticula. There is no evidence of chronic bladder outlet obstruction. There is no evidence of urinary bladder distention to suggest urinary retention. The other pelvic structures are unremarkable. The bony and vascular structures are unremarkable for the patient's age. IMPRESSION: NEGATIVE CT SCAN OF THE ABDOMEN AND PELVIS WITH ORAL AND IV CONTRAST. This study was performed using dose reduction techniques to include automated exposure control and/or adjustment of the mA and/or kV according to patient size.
--- NOTE | 2024-10-09 08:59 | HMCIMG ---
Exam Type: ABD 1VW Clinical Information: pain Comparison: None Findings: Abdomen demonstrates no evidence of pathologic calcification or soft tissue mass. There are no radiopacities to suggest calculous disease. The intestinal gas pattern is within normal limits without evidence of dilatation to suggest obstruction or adynamic ileus. The bony structures are unremarkable. IMPRESSION: Normal abdomen.
== END 2024-10-09 08:15 | disposition home or self-care (01) ==
LOC: EDH 00:12
DX: R10.32 Left lower quadrant pain (principal); K51.90 Ulcerative colitis, unspecified, without complications; E11.9 Type 2 diabetes mellitus without complications; E66.9 Obesity, unspecified; E78.00 Pure hypercholesterolemia, unspecified; Z79.1 Long term (current) use of non-steroidal anti-inflammatories (NSAID); Z88.1 Allergy status to other antibiotic agents
CPT/HCPCS: 99285; 74178; 96374; 96361; 80048; 85025; 87086; 81001; 36415; 74018; J1885; J7120; Q9967

== ENCOUNTER → 2025-04-13 | Outpatient (CLI) | payer OTHER ==
[~2025-04-13] MED LIST changes: +FAMO-136 PO; +KETO10TA2 PO; +ONDA-243 PO
[2025-04-13 15:23] LABS: CREATININE 0.6 mg/dL (0.5-1.0); GLOMERULAR FILTR. RATE CALC 101.0 mL/min (>90); GLUCOSE,RANDOM 94.0 mg/dL (70-105); SODIUM SERUM 139.0 mmol/L (136-145); UREA NITROGEN, BLOOD 11.0 mg/dL (7-18)
== END | disposition home or self-care (01) ==
LOC: LAB 14:21
PROVIDERS: ATTEND Psychiatry & Neurology Vascular Neurology
DX: I67.1 Cerebral aneurysm, nonruptured (principal)
CPT/HCPCS: 36415; 80048